=== PATIENT | male | born 1965 | race African-American/Black ===

== ENCOUNTER 2016-08-26 10:32 | Outpatient (CLI) | payer OTHER ==
[2013-12-14 18:30] VITALS: BP 139/99
[2016-08-26 11:29] LABS: eGFR (African) > 60; eGFR (Non-African) > 60
== END 2016-08-26 10:33 ==
LOC: LAB 10:32
PROVIDERS: ATTEND Family Medicine
DX: E78.2 Mixed hyperlipidemia (principal)
CPT/HCPCS: 36415; 80053; 80061

== ENCOUNTER 2016-09-20 09:51 | Emergency (ER) | payer OTHER ==
[2016-09-20] MEDS ORDERED: traMADol HCL 50 MG TABLET PO ONE (11:05)
[2016-09-20] MEDS ORDERED: predniSONE 20 MG TABLET PO ONE (11:06)
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
[2016-09-20 11:18] VITALS: BP 146/54
== END 2016-09-20 11:16 | disposition home or self-care (01) ==
LOC: ED 09:51
DX: M54.42 Lumbago with sciatica, left side (principal)
CPT/HCPCS: 99282; 99283

== ENCOUNTER 2018-03-16 10:06 | Emergency (ER) | payer OTHER ==
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
[2018-03-16 11:32] VITALS: BP 140/72
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
== END 2018-03-16 11:28 | disposition home or self-care (01) ==
LOC: ED 10:06
DX: R07.81 Pleurodynia (principal); V89.2XXA Person injured in unspecified motor-vehicle accident, traffic, initial encounter; Y92.9 Unspecified place or not applicable; Y93.9 Activity, unspecified; Y99.9 Unspecified external cause status
CPT/HCPCS: 71046; 99283

== ENCOUNTER 2019-05-10 15:28 | Emergency (ER) | payer BC, OTHER ==
[2019-05-10 16:28] VITALS: BP 125/67
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
== END 2019-05-10 17:15 ==
LOC: ED 15:28
DX: Z53.21 Procedure and treatment not carried out due to patient leaving prior to being seen by health care provider (principal)
CPT/HCPCS: 73130; 99282

== ENCOUNTER 2019-05-24 12:46 | Outpatient (CLI) | payer BC, OTHER ==
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
== END 2019-05-24 13:15 ==
LOC: ORHTO 12:46
PROVIDERS: ATTEND Orthopaedic Surgery
DX: S63.202A Unspecified subluxation of right middle finger, initial encounter (principal); Y04.0XXA Assault by unarmed brawl or fight, initial encounter
CPT/HCPCS: 99203